=== PATIENT | male | born 1980 ===

== ENCOUNTER 2018-01-01 14:27 | Outpatient (CLI) | payer OTHER ==
[~2018-01-01] VITALS: Ht 175.3 cm; Wt 87.5 kg
== END 2018-01-01 14:45 | disposition home or self-care (01) ==
LOC: OFIC 805 14:27
DX: J32.8 Other chronic sinusitis (principal); J38.2 Nodules of vocal cords; J39.2 Other diseases of pharynx

== ENCOUNTER 2018-02-15 14:42 | Outpatient (CLI) | payer OTHER ==
[~2018-02-15] VITALS: Ht 152.4 cm; Wt 87.5 kg
== END 2018-02-15 15:00 | disposition home or self-care (01) ==
LOC: OFIC 805 14:42
DX: J32.8 Other chronic sinusitis (principal)

== ENCOUNTER 2018-03-19 10:40 | Outpatient (CLI) | payer OTHER ==
[~2018-03-19] VITALS: Ht 152.4 cm; Wt 87.5 kg
== END 2018-03-19 11:05 | disposition home or self-care (01) ==
LOC: OFIC 805 10:40
DX: J32.8 Other chronic sinusitis (principal); J30.89 Other allergic rhinitis; R04.0 Epistaxis

== ENCOUNTER 2018-05-21 14:06 | Outpatient (CLI) | payer OTHER | END 2018-05-21 14:30 | disposition home or self-care (01) | LOC: OFIC 805 14:06 | DX: J30.89 Other allergic rhinitis (principal); J01.80 Other acute sinusitis ==

== ENCOUNTER 2018-12-02 15:26 | Outpatient (CLI) | payer OTHER ==
[~2018-12-02] VITALS: Ht 152.4 cm; Wt 87.5 kg
== END 2018-12-02 15:40 | disposition home or self-care (01) ==
LOC: OFIC 805 15:26
DX: J01.80 Other acute sinusitis (principal); J38.2 Nodules of vocal cords; J30.89 Other allergic rhinitis

== ENCOUNTER 2019-05-01 13:34 | Outpatient (CLI) | payer OTHER ==
[~2019-05-01] VITALS: Ht 152.4 cm; Wt 87.5 kg
== END 2019-05-01 18:28 | disposition home or self-care (01) ==
LOC: OFIC 805 13:34
DX: J30.89 Other allergic rhinitis (principal); R09.81 Nasal congestion; R05 Cough

== ENCOUNTER 2019-11-25 10:07 | Outpatient (CLI) | payer OTHER ==
[~2019-11-25] VITALS: Ht 152.4 cm; Wt 86.2 kg
== END 2019-11-25 14:58 | disposition home or self-care (01) ==
LOC: OFIC 805 10:07
DX: R09.81 Nasal congestion (principal); R05 Cough; J30.89 Other allergic rhinitis; J32.8 Other chronic sinusitis; K21.0 Gastro-esophageal reflux disease with esophagitis